=== PATIENT | female | born 1975 | race Caucasian/White ===

== ENCOUNTER 2016-11-11 21:40 | Observation (INO) | payer OTHER ==
[~2016-11-11] VITALS: Ht 170.2 cm; Wt 115.8 kg
[~2016-11-11 21:40] MED LIST: AMBIEN10 MG PO; BUSPIRONE HCL7.5 MG PO; CELEXA10 MG PO; LOESTRIN FE 1.1 EACH PO; MELATONIN5 M2 PO; MIRTAZAPINE15 MG PO; VENLAFAXINE HCL75 M1 PO; VITAMIN D-32000 UNI2 PO
[2016-11-11 22:14] LABS: HEMATOCRIT 39.7 % (36.0-46.0); MCH 28.3 PG (29.0-34.0); MCV 85.7 FL (83-99); MEAN PLAT.VOLUME 11.6 uM^3 (9.5-12.4); PLATELET COUNT 246 K/uL (156-360); RBC DIS.WIDTH-CV 13.7 % (11.8-14.6); RBC DIS.WIDTH-SD 42.4 % (39-53); RED BLOOD COUNT 4.63 M/uL (3.80-5.20); WHITE BLOOD COUNT 6.1 K/uL (4.1-10.2)
[2016-11-11 22:23] LABS: CHLORIDE 109 mEq/L (99-109); POTASSIUM 3.6 mEq/L (3.7-5.4); SODIUM 137 mEq/L (136-147)
[2016-11-11 22:25] LABS: GLUCOSE 290 mg/dL (70-99)
[2016-11-11 22:26] LABS: ANION GAP 12 MEQ/L (2-14)
[2016-11-11 22:29] LABS: GFR ESTIMATE (CALCULATED) > 59 mL/min/; UREA NITROGEN (BUN) 10 mg/dL (9-23)
[2016-11-11 22:34] LABS: TROP-I INTERPRETATION NEGATIVE; TROPONIN-I < 0.01 ng/mL (0.0-0.30)
[2016-11-11 22:58] LABS: D-DIMER ELISA 0.68 mg/L FEU (< 0.57)
[2016-11-11 23:19] LABS: TOTAL BILIRUBIN 0.5 mg/dL (0.0-1.0)
[2016-11-11 23:20] LABS: ALKALINE PHOSPHATASE 116 IU/L (3-129)
[2016-11-11 23:22] LABS: DIRECT BILIRUBIN 0.2 mg/dL (0.0-0.3)
[2016-11-11 23:24] LABS: LIPASE 17 U/L (1.0-51.0)
[2016-11-12 00:48] LABS: ADD MIUA? YES; BILIRUBIN NEGATIVE; BLOOD NEGATIVE; COLOR YELLOW ((YELLOW)); GLUCOSE (STRIP) >=1000; KETONES 15; LEUKOCYTES TRACE; NITRITE NEGATIVE; PH, URINE 7.5 (5-8); PROTEIN (STRIP) NEGATIVE
[2016-11-12 01:25] LABS: RED BLOOD CELLS NONE SEEN /HPF (0-5); WHITE BLOOD CELLS 0-5 /HPF (0-5)
[2016-11-12 01:26] LABS: BACTERIA 1+; CASTS NONE SEEN /LPF; CRYSTALS NONE SEEN; EPITHELIAL CELLS 1+; MUCUS NONE SEEN; UCUL ADDED? NO
[2016-11-12 01:30] LABS: CHLORIDE 112 mEq/L (99-109); POTASSIUM 3.8 mEq/L (3.7-5.4); SODIUM 139 mEq/L (136-147)
[2016-11-12 01:32] LABS: GLUCOSE 187 mg/dL (70-99)
[2016-11-12 01:33] LABS: ANION GAP 12 MEQ/L (2-14)
[2016-11-12 01:35] LABS: GFR ESTIMATE (CALCULATED) > 59 mL/min/
[2016-11-12 01:36] LABS: UREA NITROGEN (BUN) 9 mg/dL (9-23)
[2016-11-12 01:39] LABS: TROP-I INTERPRETATION NEGATIVE; TROPONIN-I < 0.01 ng/mL (0.0-0.30)
[2016-11-12 01:48] LABS: CARBON DIOXIDE (BICARBONATE) 20.4 MEQ/L (20-31)
[2016-11-12] MEDS ORDERED: ERGOCALCIF50000 UNIT PO (03:36)
[2016-11-12] MEDS ORDERED: IRON160 M1 PO (03:37)
[2016-11-12] MEDS ORDERED: CENTRUM COMPLE1 EACH PO (03:37)
[2016-11-12] MEDS ORDERED: CYANOCOBAL1000 MCG/2 IM (03:37)
[2016-11-12] MEDS ORDERED: CALCIUM 500 MG1 EACH PO (03:38)
[2016-11-12 08:23] LABS: HEMATOCRIT 35.9 % (36.0-46.0); MCH 28.4 PG (29.0-34.0); MCHC 32.9 G/DL (30.0-36.0); MCV 86.5 FL (83-99); MEAN PLAT.VOLUME 11.6 uM^3 (9.5-12.4); PLATELET COUNT 220 K/uL (156-360); RBC DIS.WIDTH-CV 13.8 % (11.8-14.6); RBC DIS.WIDTH-SD 42.9 % (39-53); RED BLOOD COUNT 4.15 M/uL (3.80-5.20); WHITE BLOOD COUNT 7.9 K/uL (4.1-10.2)
[2016-11-12 08:40] LABS: CHLORIDE 112 mEq/L (99-109); SODIUM 140 mEq/L (136-147)
[2016-11-12 08:43] LABS: MAGNESIUM 1.9 mg/dL (1.3-2.7)
[2016-11-12 08:44] LABS: ANION GAP 10 MEQ/L (2-14)
[2016-11-12 08:45] LABS: TOTAL BILIRUBIN 0.5 mg/dL (0.0-1.0)
[2016-11-12 08:46] LABS: ALKALINE PHOSPHATASE 96 IU/L (3-129); GFR ESTIMATE (CALCULATED) > 59 mL/min/
[2016-11-12 08:47] LABS: UREA NITROGEN (BUN) 7 mg/dL (9-23)
[2016-11-12 08:49] LABS: TROP-I INTERPRETATION NEGATIVE; TROPONIN-I < 0.01 ng/mL (0.0-0.30)
[2016-11-12 09:04] LABS: GLUCOSE 116 mg/dL (70-99)
[2016-11-12] MEDS ORDERED: URSODIOL500 MG PO (09:14)
[2016-11-12 09:19] LABS: Estimated Average Glucose 108 mg/dL (70-123); HEMOGLOBIN A1c (GLYCOHEMOGLOB) 5.4 % HGB (Below 5.7)
[2016-11-12 09:39] LABS: IRON 53 MCG/DL (35-150)
[2016-11-12] MEDS ORDERED: LORATADINE10 M2 PO ×2 (14:21→14:24)
[2016-11-12] MEDS ORDERED: FAMOTIDINE20 MG PO ×2 (14:21→14:24)
[2016-11-12] MEDS ORDERED: PREDNISONE10 MG PO ×2 (14:21→14:24)
[2016-11-12 15:03] VITALS: BP 135/79
== END 2016-11-12 15:04 | disposition home or self-care (01) ==
LOC: EME 21:40 → EDOF 11-12 03:32
PROVIDERS: Emergency Medicine; Internal Medicine
DX: J40 Bronchitis, not specified as acute or chronic (principal); E66.01 Morbid (severe) obesity due to excess calories; Z68.39 Body mass index [BMI] 39.0-39.9, adult; Z98.84 Bariatric surgery status; G47.30 Sleep apnea, unspecified; K75.81 Nonalcoholic steatohepatitis (NASH); F32.9 Major depressive disorder, single episode, unspecified; R00.0 Tachycardia, unspecified; E87.3 Alkalosis; R81 Glycosuria; R20.2 Paresthesia of skin; Z80.0 Family history of malignant neoplasm of digestive organs; Z80.1 Family history of malignant neoplasm of trachea, bronchus and lung; Z88.6 Allergy status to analgesic agent; Z88.8 Allergy status to other drugs, medicaments and biological substances
CPT/HCPCS: 71020; 71275; 74177; 80048; 80053; 80076; 81003; 82009; 82330; 82607; 82746; 82803; 83036; 83540; 83690; 83735; 84100; 84425 90; 84484; 85027; 85379; 93005; 94640; 94640 76; 99202; 99281; 99285; G0378; J1650; J7030; J7512

== ENCOUNTER 2017-07-03 13:19 | Inpatient (IN) | payer OTHER ==
[~2017-07-03] VITALS: Ht 170.2 cm; Wt 120.4 kg
[~2017-07-03 13:19] MED LIST changes: +CALCIUM 500 MG1 EACH PO; +CENTRUM COMPLE1 EACH PO; +CYANOCOBAL1000 MCG/2 IM; +ERGOCALCIF50000 UNIT PO; +FAMOTIDINE20 MG PO; +IRON160 M1 PO; +LORATADINE10 M2 PO; +PREDNISONE10 MG PO; +URSODIOL500 MG PO
[2017-07-03 14:09] LABS: INTERNAL CONTROL VALID? YES
[2017-07-03 14:10] LABS: ADD MEDTOX COMMENT Y; AMPHETAMINE NEGATIVE (500 ng/mL); BARBITURATES NEGATIVE (200 ng/mL); BENZODIAZEPINES NEGATIVE (150 ng/mL); COCAINE NEGATIVE (150 ng/mL); INTERNAL CONTROLS VALID? YES; METHADONE NEGATIVE (200 ng/mL); METHAMPHETAMINE NEGATIVE (500 ng/mL); OPIATES (MORPHINE) PRESUMPTIVE POSITIVE (100 ng/mL); OXYCODONE NEGATIVE (100 ng/mL); PHENCYCLIDINE NEGATIVE (25 ng/mL); PROPOXYPHENE NEGATIVE (300 ng/mL); THC CANNABINOIDS NEGATIVE (50 ng/mL); TRICYCLIC ANTIDEPRESSANTS NEGATIVE (300 ng/mL)
[2017-07-03 14:23] LABS: EOSINOPHIL (%) 0.6 % (0-5); HEMATOCRIT 36.8 % (36.0-46.0); IMMATURE GRANULOCYTE (%) 0.2 % (0.0-0.7); INSTRUMENT ABS NEUTROPHIL CT 3.4 K/uL; LYMPHOCYTE COUNT 1.3 K/uL (1.0-2.8); MCH 28.7 PG (29.0-34.0); MCHC 32.3 G/DL (30.0-36.0); MCV 88.9 FL (83-99); MEAN PLAT.VOLUME 10.5 uM^3 (9.5-12.4); MONOCYTE (%) 5.1 % (3-12); MONOCYTE COUNT 0.3 K/uL (0-0.8); NEUTROPHIL (%) 68.3 % (45-76); NEUTROPHIL COUNT 3.4 K/uL (1.8-6.4); PLATELET COUNT 187 K/uL (156-360); RBC DIS.WIDTH-CV 12.9 % (11.8-14.6); RED BLOOD COUNT 4.14 M/uL (3.80-5.20); WHITE BLOOD COUNT 4.9 K/uL (4.1-10.2)
[2017-07-03 14:30] LABS: CHLORIDE 108 mEq/L (99-109); POTASSIUM 4.3 mEq/L (3.7-5.4); SODIUM 139 mEq/L (136-147)
[2017-07-03 14:32] LABS: GLUCOSE 94 mg/dL (70-99)
[2017-07-03 14:33] LABS: ANION GAP 8 MEQ/L (2-14)
[2017-07-03 14:35] LABS: SERUM ETHYL ALCOHOL < 10 mg/dL
[2017-07-03 14:36] LABS: GFR ESTIMATE (CALCULATED) > 59 mL/min/
[2017-07-03 14:38] LABS: UREA NITROGEN (BUN) 9 mg/dL (9-23)
[2017-07-03 14:39] LABS: SALICYLATE < 5.0 MG/DL (15-30)
[2017-07-03 19:54] VITALS: BP 136/92
[2017-07-04 07:33] VITALS: BP 113/59
[2017-07-04 15:53] VITALS: BP 106/60
[2017-07-05 07:32] VITALS: BP 94/51
[2017-07-05 15:41] VITALS: BP 122/70
[2017-07-06 07:24] VITALS: BP 101/55
[2017-07-06] MEDS ORDERED: EFFEXOR XR150 MG PO (09:33)
[2017-07-06] MEDS ORDERED: BUSPAR10 MG PO (09:34)
== END 2017-07-06 11:07 | disposition home or self-care (01) | DRG 885 ==
LOC: EME 13:19 → EDOF 17:18 → 1WEST 17:18 → ENRESERV 19:46 → 1WEST 19:47
PROVIDERS: Emergency Medicine
DX: F33.1 Major depressive disorder, recurrent, moderate (principal); T40.2X2A Poisoning by other opioids, intentional self-harm, initial encounter; T43.212A Poisoning by selective serotonin and norepinephrine reuptake inhibitors, intentional self-harm, initial encounter; E66.9 Obesity, unspecified; Z68.41 Body mass index [BMI] 40.0-44.9, adult
CPT/HCPCS: 80048; 84703; 84999; 85025; 90837; 97165 GO; 99281; 99285; G0480; Q0177

== ENCOUNTER 2017-08-29 04:48 | Emergency (ER) | payer OTHER ==
[~2017-08-29] VITALS: Ht 170.2 cm; Wt 102.3 kg
[~2017-08-29 04:48] MED LIST changes: +BUSPAR10 MG PO; +EFFEXOR XR150 MG PO
[2017-08-29 05:31] LABS: CHLORIDE 106 mEq/L (99-109); POTASSIUM 3.4 mEq/L (3.7-5.4); SODIUM 140 mEq/L (136-147)
[2017-08-29 05:34] LABS: GLUCOSE 105 mg/dL (70-99); MCH 29.2 PG (29.0-34.0); MCHC 32.6 G/DL (30.0-36.0); MCV 89.5 FL (83-99); MEAN PLAT.VOLUME 11.4 uM^3 (9.5-12.4); PLATELET COUNT 194 K/uL (156-360); RBC DIS.WIDTH-CV 12.6 % (11.8-14.6); RBC DIS.WIDTH-SD 41.2 % (39-53); RED BLOOD COUNT 3.91 M/uL (3.80-5.20); WHITE BLOOD COUNT 5.2 K/uL (4.1-10.2)
[2017-08-29 05:35] LABS: ANION GAP 10 MEQ/L (2-14); TOTAL BILIRUBIN 0.4 mg/dL (0.0-1.0)
[2017-08-29 05:36] LABS: SERUM ETHYL ALCOHOL < 10 mg/dL
[2017-08-29 05:37] LABS: ALKALINE PHOSPHATASE 85 IU/L (3-129); GFR ESTIMATE (CALCULATED) > 59 mL/min/
[2017-08-29 05:38] LABS: UREA NITROGEN (BUN) 10 mg/dL (9-23)
[2017-08-29 06:11] LABS: ADD MIUA? YES; BILIRUBIN NEGATIVE; BLOOD SMALL; COLOR YELLOW ((YELLOW)); GLUCOSE (STRIP) NEGATIVE; KETONES 5; LEUKOCYTES TRACE; NITRITE NEGATIVE; PROTEIN (STRIP) NEGATIVE; SPECIFIC GRAVITY 1.024 (1.000-1.030)
[2017-08-29 06:19] VITALS: BP 122/79
[2017-08-29 06:21] LABS: ADD MEDTOX COMMENT Y; AMPHETAMINE NEGATIVE (500 ng/mL); BARBITURATES NEGATIVE (200 ng/mL); BENZODIAZEPINES PRESUMPTIVE POSITIVE (150 ng/mL); COCAINE NEGATIVE (150 ng/mL); INTERNAL CONTROLS VALID? YES; METHADONE NEGATIVE (200 ng/mL); METHAMPHETAMINE NEGATIVE (500 ng/mL); OPIATES (MORPHINE) NEGATIVE (100 ng/mL); OXYCODONE NEGATIVE (100 ng/mL); PHENCYCLIDINE NEGATIVE (25 ng/mL); PROPOXYPHENE NEGATIVE (300 ng/mL); THC CANNABINOIDS NEGATIVE (50 ng/mL); TRICYCLIC ANTIDEPRESSANTS NEGATIVE (300 ng/mL)
[2017-08-29 06:42] LABS: BACTERIA 1+ /HPF; CASTS NONE SEEN /LPF; CRYSTALS NONE SEEN; EPITHELIAL CELLS 1+ /HPF; MUCUS RARE /LPF; RED BLOOD CELLS 0-5 /HPF (0-5); WHITE BLOOD CELLS 0-5 /HPF (0-5)
[2017-08-29 08:01] LABS: BENZODIAZEPINES, URINE SCREEN POSITIVE (200 ng/mL)
== END 2017-08-29 06:31 | disposition home or self-care (01) ==
LOC: EME 04:48
PROVIDERS: Emergency Medicine
DX: F32.9 Major depressive disorder, single episode, unspecified (principal); Z91.5 Personal history of self-harm; Z88.8 Allergy status to other drugs, medicaments and biological substances
CPT/HCPCS: 80053; 81003; 84999; 85027; 90837; 99281; 99284; G0480

== ENCOUNTER 2018-02-26 03:48 | Emergency (ER) | payer OTHER ==
[~2018-02-26] VITALS: Ht 170.2 cm; Wt 109.0 kg
[2018-02-26 05:10] VITALS: BP 116/81
== END 2018-02-26 05:12 | disposition home or self-care (01) ==
LOC: EME 03:48
DX: S09.90XA Unspecified injury of head, initial encounter (principal); S20.212A Contusion of left front wall of thorax, initial encounter; S20.211A Contusion of right front wall of thorax, initial encounter; S60.221A Contusion of right hand, initial encounter; S60.222A Contusion of left hand, initial encounter; Y04.0XXA Assault by unarmed brawl or fight, initial encounter; Z88.6 Allergy status to analgesic agent
CPT/HCPCS: 70450; 71046; 73130; 99281; 99284

== ENCOUNTER 2018-06-30 17:04 | Emergency (ER) | payer OTHER ==
[~2018-06-30] VITALS: Ht 170.2 cm; Wt 103.9 kg
[2018-06-30 17:55] LABS: HEMATOCRIT 33.8 % (36.0-46.0); MCH 28.1 PG (29.0-34.0); MCHC 32.5 G/DL (30.0-36.0); MCV 86.2 FL (83-99); PLATELET COUNT 215 K/uL (156-360); RBC DIS.WIDTH-CV 13.2 % (11.8-14.6); RBC DIS.WIDTH-SD 41.4 % (39-53); RED BLOOD COUNT 3.92 M/uL (3.80-5.20); WHITE BLOOD COUNT 5.4 K/uL (4.1-10.2)
[2018-06-30 18:03] LABS: CHLORIDE 110 mEq/L (99-109); POTASSIUM 4.4 mEq/L (3.7-5.4); SODIUM 140 mEq/L (136-147)
[2018-06-30 18:04] LABS: GLUCOSE 106 mg/dL (70-99)
[2018-06-30 18:07] LABS: SERUM ETHYL ALCOHOL < 10 mg/dL
[2018-06-30 18:08] LABS: CREATININE 0.6 mg/dL (0.6-1.3); GFR ESTIMATE (CALCULATED) > 59 mL/min/
[2018-06-30 18:09] LABS: UREA NITROGEN (BUN) 13 mg/dL (9-23)
[2018-06-30 18:16] LABS: TROP-I INTERPRETATION NEGATIVE; TROPONIN-I < 0.01 ng/mL (0.0-0.30)
[2018-06-30 18:17] LABS: QUANTITATIVE HCG < 4.0 MIU/ML
[2018-06-30 19:50] LABS: APPEARANCE CLEAR ((CLEAR)); BILIRUBIN NEGATIVE; BLOOD NEGATIVE; COLOR AMBER ((YELLOW)); GLUCOSE (STRIP) NEGATIVE; KETONES 5; LEUKOCYTES TRACE; NITRITE NEGATIVE; PROTEIN (STRIP) 30; SPECIFIC GRAVITY 1.032 (1.000-1.030)
[2018-06-30 20:00] LABS: AMPHETAMINE NEGATIVE (500 ng/mL); BARBITURATES NEGATIVE (200 ng/mL); BENZODIAZEPINES NEGATIVE (150 ng/mL); BUPRENORPHINE NEGATIVE (10 ng/mL); COCAINE NEGATIVE (150 ng/mL); METHADONE NEGATIVE (200 ng/mL); METHAMPHETAMINE NEGATIVE (500 ng/mL); OPIATES (MORPHINE) NEGATIVE (100 ng/mL); OXYCODONE NEGATIVE (100 ng/mL); PHENCYCLIDINE NEGATIVE (25 ng/mL); PROPOXYPHENE NEGATIVE (300 ng/mL); THC CANNABINOIDS NEGATIVE (50 ng/mL); TRICYCLIC ANTIDEPRESSANTS NEGATIVE (300 ng/mL)
[2018-06-30 20:17] LABS: BACTERIA RARE /HPF; EPITHELIAL CELLS 1+ /HPF; MUCUS TRACE /LPF; RED BLOOD CELLS 0-5 /HPF (0-5)
[2018-06-30 20:30] VITALS: BP 129/84
== END 2018-06-30 20:30 | disposition home or self-care (01) ==
LOC: EME 17:04
PROVIDERS: Nurse Practitioner Family
DX: R53.1 Weakness (principal); R40.0 Somnolence; R53.83 Other fatigue; R51 Headache; R06.02 Shortness of breath; T50.905A Adverse effect of unspecified drugs, medicaments and biological substances, initial encounter; F41.9 Anxiety disorder, unspecified; F32.9 Major depressive disorder, single episode, unspecified; Z88.8 Allergy status to other drugs, medicaments and biological substances
CPT/HCPCS: 71046; 80048; 81003; 84484; 84702; 85027; 99281; 99285; G0480; J7030